=== PATIENT | female | born 1985 | race Caucasian/White ===

== ENCOUNTER 2023-04-18 09:18 | Outpatient (CLI) | payer OTHER, SELFPAY ==
[2023-04-18 17:15] LABS: Alanine Aminotransferase 17 U/L (6-35); Albumin Level 4.2 g/dL (3.5-5.1); Alkaline Phosphatase 55 U/L (38-126); Anion Gap 1 mmol/L (8-16); Aspartate Amino Transferase 26 U/L (14-36); Bilirubin,Total 0.8 mg/dL (0.2-1.3); Blood Urea Nitrogen 18 mg/dL (7-17); Calcium 8.7 mg/dL (8.4-10.2); Carbon Dioxide 31 mmol/L (22-30); Chloride 100 mmol/L (98-107); Cholesterol 135 mg/dL (0-200); Estimated Glomerular Filt Rate > 60; Glucose 94 mg/dL (65-110); HDL Direct 78 mg/dL; Potassium 3.7 mmol/L (3.4-5.0); Sodium 132 mmol/L (137-145); Triglycerides < 30 mg/dL (<150)
[2023-04-18 17:25] LABS: LDL Cholesterol Direct 47 mg/dL
[2023-04-18 17:44] LABS: Thyroid Stimulating Hormone 0.648 uIU/mL (0.465-4.680)
== END 2023-04-18 09:19 | disposition home or self-care (01) ==
LOC: ANHGOSHLAB 09:21
PROVIDERS: PCP Family Medicine; Visit Provider Family Medicine
DX: Z00.00 Encounter for general adult medical examination without abnormal findings (principal)
CPT/HCPCS: 36415; 80053; 80061; 84443

== ENCOUNTER 2023-05-02 09:18 | Outpatient (CLI) | payer OTHER, SELFPAY ==
[2023-05-02 13:04] LABS: Basophils Percent Auto 0.8 % (0.2-1.2); Eosinophils Absolute Auto 0.1 K/mm3 (0-0.3); Eosinophils Percent Auto 1.7 % (0-4.4); Hematocrit 35.9 % (37.0-47.0); Hemoglobin 11.5 g/dL (12.0-15.0); Immature Granulocyte Absolute 0.01 K/mm3 (0.00-0.031); Immature Granulocyte Percent A 0.2 % (0-0.5); Lymphocytes Absolute Auto 1.63 K/mm3 (0.9-3.2); Lymphocytes Percent Auto 30.6 % (18.3-44.2); Mean Corpuscular Hemoglobin 29.5 pg (26-34); Mean Corpuscular Volume 92.1 fl (80-100); Mean Platelet Volume 11.6 fl (7.4-10.4); Monocytes Absolute Auto 0.5 K/mm3 (0.1-0.6); Monocytes Percent Auto 8.4 % (2.6-8.5); Neutrophils Absolute Auto 3.1 K/mm3 (1.3-6.7); Neutrophils Percent Auto 58.3 % (45.5-73.1); Platelet Count Result 194 k/mm3 (150-375); Red Cell Distribution Width 13.1 % (11.5-14.5); White Blood Count 5.3 K/mm3 (4.5-10.0)
[2023-05-02 13:22] LABS: Alanine Aminotransferase 16 U/L (6-35); Alkaline Phosphatase 49 U/L (38-126); Anion Gap 8 mmol/L (8-16); Aspartate Amino Transferase 45 U/L (14-36); Bilirubin,Total 0.7 mg/dL (0.2-1.3); Blood Urea Nitrogen 16 mg/dL (7-17); Calcium 8.9 mg/dL (8.4-10.2); Carbon Dioxide 29 mmol/L (22-30); Chloride 102 mmol/L (98-107); Cholesterol 119 mg/dL (0-200); Estimated Glomerular Filt Rate > 60; Glucose 82 mg/dL (65-110); HDL Direct 67 mg/dL; Potassium 3.9 mmol/L (3.4-5.0); Sodium 139 mmol/L (137-145); Triglycerides 31 mg/dL (<150)
[2023-05-02 13:33] LABS: LDL Cholesterol Direct 43 mg/dL
[2023-05-02 13:50] LABS: Thyroid Stimulating Hormone 0.719 uIU/mL (0.465-4.680)
== END 2023-05-02 09:19 | disposition home or self-care (01) ==
LOC: ANHGOSHLAB 09:21
PROVIDERS: PCP Family Medicine; Visit Provider Family Medicine
DX: Z00.00 Encounter for general adult medical examination without abnormal findings (principal); E87.1 Hypo-osmolality and hyponatremia
CPT/HCPCS: 36415; 80053; 80061; 84443; 85025

== ENCOUNTER 2024-09-07 09:28 | Outpatient (CLI) | payer BC, SELFPAY | END 2024-09-07 09:29 | disposition home or self-care (01) | LOC: ANHGOSHLAB 09:29 | PROVIDERS: PCP Family Medicine; Visit Provider Family Medicine | DX: D64.9 Anemia, unspecified (principal) | CPT/HCPCS: 36415; 82607; 82728 ==

== ENCOUNTER 2024-09-21 09:26 | Outpatient (CLI) | payer BC, SELFPAY ==
--- OUTSIDE RECORDS SUMMARY | 2024-09-21 09:57 | XMS_ITS | Continuity of Care Document ---
Author Organization [facility] Address [address] [place] [phone] Phone Care Team Providers Care Community Outreach Director Name Role Phone Grant Hicks MD Unavailable Unavailable Allergies, Adverse Reactions, Alerts Substance Reaction Status Criticality No Known Allergies Active No Inform ation Problems Condition Type Effective Dates (start - stop) Clini curt Status Comments No Known Problems Procedures Procedure Date Medications - Current Meds Documented Se NEW PATNT OV DTL EXAM X-RAY OF ANKLE 3 VIEWS X-RAY OF KNEE 1 OR 2 VIEWS Advance Directives Directive Yes / No Effective Date File Name No Information Encounters Encounter Description Practice Location Reason(s) For Visit Diagnoses Date Provider Providers Copied on Encounter NEW PATNT OV DTL EXAM [facility], [address] [place] [address], [id number], tel:[phone] [facility] Left ankle injury (chief complaint) Sprain of left ankle, unspecified ligament, initial encounterAcute pain of left knee Kurt Burns. [address] [place], [place], [id number] . tel:[phone] Referring Provider: Grant Street, [address] [place], [address] . tel:[phone] Family History Family Member Type Diagnosis Age At Onset No Information Payers Payer name Insurance type Covered constitution party ID Authoriza tion(s) A[employer] Open Choice PPO CI [id number] Social History Type Description Quantity Date Captured Comments Alcohol Use Details Caffeine Use Details Unknown Tobacco Use Status Never smoked tobacco 2019 Smoking Status Never smoker Non-Smoking Tobacco Use Details : No Details Available : No Details Available Sex Female Vital Signs Date / Time: Height Weight BMI Pulse Rate Blood Pressure Temperature Respiratory Rate Body Surface Area Head Circumference Head Circ. Percentile Wt./Scot. Percentile BMI percentile Pulse Ox Inhaled Ox 10:36 AM 67.00 in 65.771 kg (145.00 lbs) 22.7 1 kg/m eter (2) Chief Complaint And Reason For Visit From encounter dated '05/09/2020 10:20'. Left ankle injury (chief complaint) Reason For Referral Reason For Referral No Information Plan Of Treatment Date Type Action Status Future Order: Radiology Order MR I - Ankle Left W/O Contrast (AKL), Ordered on: Ordered History Of Present Illness Encounter Date Complaint History Of Prese nt Illness Left ankle injury Functional Status Date Functional Assessmen t No Information Instructions Date Instruction Additional Infor mation - Medication refills must be requested before 4pm Friday through Friday Related to Acute pain of left knee - Patient education available at [email or web address] on the Education tab Related to Acute pain of left knee Assessments Type Assessment Date assessment Sprain of left ankle, unspecifie d ligament, initial encounter assessment Acute pain of left knee 020 Patient Care Teams Name Effective Dates (start - stop) Status Members No Information
--- OUTSIDE RECORDS SUMMARY | 2024-09-21 09:57 | XMS_ITS | Continuity of Care Document ---
Author Organization [facility] Address [address] [place] [address] Phone Care Team Providers Care Booth Supervisor Name Role Phone No Information Unavailable Unavailable Advance Directives Directive Yes / No Effective Date File Name No Information Encounters Encounter Description Practice Location Reason(s) For Visit Diagnoses Date Provider Providers [facility]ied on [facility], [address] [place] [address], [address], [place] tel:[phone] No Location No Information No Information Family History Family Member Type Diagnosis Age At Onset No Information Payers Payer name Insurance type Covered republican ID Authoriza tion(s) No Information Social History Type Description Quantity Date Captured Comments Sex Female Smoking Status No Information Chief Complaint And Reason For Visit No Information Reason For Referral Reason For Referral No Information History Of Present Illness Encounter Date Complaint History Of Prese nt Illness No Information Functional Status Date Functional Assessmen t No Information Instructions Date Instruction Additional Infor mation No Information Assessments Type Assessment Date No Information Patient Care Teams Name Effective Dates (start - stop) Status Members No Information
--- OUTSIDE RECORDS SUMMARY | 2024-09-21 09:57 | XMS_ITS | Clinical Summary ---
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 Gender Identity Not on file Sexual Orientation Not on file Plan of Treatment Health Maintenance Due Date Last Done Comments Hepatitis C Virus (HCV) Screening 1987 TdaP Immunization 1987 Hepatitis B Immunization (1 of 3 - 19+ 3-dose series) 2006 Pap Smear 2008 Cervical Cancer Screening (CCS) 2017 HPV/Cotest 2017 Influenza Immunization (#1) 2024 SARS-COV-2 Immunization ( season) 2024 Respiratory Syncytial Virus (RSV) Immunization (Adult) (1 - 1-dose 75+ series) 2062 Meningococcal Immunization (ACWY) Aged Out No longer eligible based on patient's age to complete this topic Pneumococcal Immunization Combined Aged Out No longer eligible based on patient's age to complete this topic Rotavirus Immunization Aged Out No lo nger eligible based on patient's age to complete this topic Insurance [employer] on file
--- OUTSIDE RECORDS SUMMARY | 2024-09-21 09:57 | XMS_ITS | Referral Summary ---
Author Organization [facility] Address [address] [place] [address] Care Team Providers Care Bonsai Culturist Name Role Phone Unavailable Primary Care Provider Unavailabl e Source Comments [facility],non-owned Affiliates and Associated Physician Practices is amultiple site organization consisting of ambulatory clinics and hospital sitesin [place], [place], [place] and [place]. This disclosure is being madepursuant to the Care Everywhere program and may not contain all information available regarding this patient. Last updated 18.[facility] Social History Tobacco Use Types Packs/Day Years Used Date Smoking Tobacco: Never Assessed Sex and Gender Information Value Date Recorded Sex Assigned at Not on file Gender Identity Not on file Sexual Orientation Not on file Plan of Treatment Not on file
--- OUTSIDE RECORDS SUMMARY | 2024-09-21 09:57 | XMS_ITS | Patient Health Summary ---
Author Organization [facility] Address [address] [place] [address] Care Team Providers Care Ultrasound Technol Name Role Phone Unavailable Primary Care Provider Unavailanant e Note from [facility],non-owned Affiliates and Associated Physician Practices is amultiple site organization consisting of ambulatory clinics and hospital sitesin [place], [place], [place] and [place]. This disclosure is being madepursuant to the Care Everywhere program and may not contain all information available regarding this patient. Last updated 18.[facility] Social History Tobacco Use Types Packs/Day Years Used Date Smoking Tobacco: Never Assessed Sex and Gender Information Value Date Recorded Sex Assigned at Not on file Gender Identity Not on file Sexual Orientation Not on file Procedures * DERMATOPATHOLOGY(Performed 10/05/2021) Results * DERMATOPATHOLOGY (10/05/2021 12:00 AM SHEET PILE DRIVER OPERATOR) Case Report Dermatopathology Report ? Case: [id number] ? Authorizing Provider: ??Valdemar Mtz MD ?Collected: ? 10/05/2021 12:00 AM ? Ordering Location: ? [facility] ?Received: ?10/08/2021 04:24 PM ? Pathologist: ? Damaris Alva, ? MD ? Specimen: ?Skin, left buttock ? 2 2:[address] [facility] DERMATOPATHOLOGY LABORATORY Final Diagnosis Specimen A. SKIN, left buttock: LENTIGINOUS MELANOCYTIC NEVUS, COMPOUND TYPE, IRRITATED (COMPOUND MELANOCYTIC NEVUS WITH ARCHITECTURAL DISORDER) (D22.5) POST-INFLAMMATORY PIGMENT ALTERATION (L81.9) 2 2:[address] [facility] DERMATOPATHOLOGY LABORATORY Clinical History Nevus vs MM. Path # [id number]. 2 2:[address] [facility] DERMATOPATHOLOGY LABORATORY Gross Description Specimen A: Received is one formalin filled container labeled with the patient's name and designated left buttock. The specimen consists of a shave biopsy measuring [id number]. Jar 0. 2 2:[address] [facility] DERMATOPATHOLOGY LABORATORY Microscopic Description Specimen A. SKIN, left buttock: This is a compound nevus. There is melanin pigment in the stratum corneum. There is architectural disorder characterized by a lentiginous proliferation of melanocytes between irregular nests of cells along the dermal-epidermal junction, highlighted by MART-1/Melan-A immunohistochemical staining. There is underlying fibroplasia of the papillary dermis. The intradermal component is bland appearance and matures with depth. Original and deeper sections were reviewed. (Compound Abraham's Nevus or Compound Dysplastic Nevus) There is abundant melanin within melanophages around the superficial vascular plexus. 2 2:[address] [facility] DERMATOPATHOLOGY LABORATORY Disclaimer An external and internal positive and negative controls are appropriate for the histochemical, immunohistochemical and immunofluorescence stain(s) in this case (if any), except where stated explicitly. The performance characteristics of the stain(s) cited in this report were developed and its performance characteristic determined by the Dermatopathology Laboratory at [facility], directed by Dr. Donald Gonzalez. These tests need not be, and therefore are not, approved by the [place] Food and Drug Administration. The tests are used for clinical purposes. Billing Codes Specimen Charges Stain Charges 74503 1 94671 1 2 2:[address] [facility] DERMATOPATHOLOGY LABORATORY Embedded Images 2 2:47 PM SHEET PILE DRIVER OPERATOR DERMATOPATHOLOGY LABORATORY Pathology/Cytolog y TISSUE SPECIMEN FROM SKIN / Unknown 10/05/2021 10/08/2021 4:24 PM SHEET PILE DRIVER OPERATOR Valdemar Mtz MD LAB - PATHOLOGY/CYTO LOGY ORDERABLES DERMATOPATHOLOGY LABORATORY [facility] - Department of Dermatology [facility] [address] [place] [address], [address] [phone]
--- OUTSIDE RECORDS SUMMARY | 2024-09-21 09:57 | XMS_ITS | Encounter Summary ---
Author Organization [facility] Address [address] [place] [place] [address] Care Team Providers Care Scrub Woman Name Role Phone Unavailable Primary Care Provider Iwonaanant e Encounter Details Date Type Department Care Team (Late st Contact Info) Description 10/08/2021 Lab Requisition [facility] [address] [place] [id number] Valdemar Mtz MD [address] [place] [address] Social History Tobacco Use Types Packs/Day Years Used Date Smoking Tobacco: Never Assessed Sex and Gender Information Value Date Recorded Sex Assigned at Not on file Gender Identity Not on file Sexual Orientation Not on file documented as of this encounter Plan of Treatment Not on file documented as of this encounter Procedures Procedure Name Priority Date/Time Associated Diagnosis Comments DERMATOPATHOLOGY Routine 10/05/2021 12:0 0 AM MANAGER STONE documented in this encounter Results * DERMATOPATHOLOGY (10/05/2021 12:00 AM MANAGER STONE) Case Report Dermatopathology Report ? Case: [id number] ? Authorizing Provider: ??Valdemar Mtz MD ?Collected: ? 10/05/2021 12:00 AM ? Ordering Location: ? [facility] ?Received: ?10/08/2021 04:24 PM ? Pathologist: ? Damaris Alva, ? MD ? Specimen: ?Skin, left buttock ? 2 2:47 PM [facility] DERMATOPATHOLOGY LABORATORY Final Diagnosis Specimen A. SKIN, left buttock: LENTIGINOUS MELANOCYTIC NEVUS, COMPOUND TYPE, IRRITATED (COMPOUND MELANOCYTIC NEVUS WITH ARCHITECTURAL DISORDER) (D22.5) POST-INFLAMMATORY PIGMENT ALTERATION (L81.9) 2 2:47 PM [facility] DERMATOPATHOLOGY LABORATORY Clinical History Nevus vs MM. Path # [id number]. 2 2:47 PM [facility] DERMATOPATHOLOGY LABORATORY Gross Description Specimen A: Received is one formalin filled container labeled with the patient's name and designated left buttock. The specimen consists of a shave biopsy measuring [id number]. Jar 0. 2 2:47 PM [facility] DERMATOPATHOLOGY LABORATORY Microscopic Description Specimen A. SKIN, [...] the superficial vascular plexus. 2 2:47 PM [facility] DERMATOPATHOLOGY LABORATORY Disclaimer An external and internal positive and negative controls are appropriate for the histochemical, immunohistochemical and immunofluorescence stain(s) in this case (if any), except where stated explicitly. The performance characteristics of the stain(s) cited in this report were developed and its performance characteristic determined by the Dermatopathology Laboratory at [facility], directed by Dr. Donald Gonzalez. These tests need not be, and therefore are not, approved by the [place] Food and Drug Administration. The tests are used for clinical purposes. Billing Codes Specimen Charges Stain Charges 41081 1 19869 1 2 2:47 PM MANAGER STONE DERMATOPATHOLOGY LABORATORY Embedded Images 2 2:47 PM MANAGER STONE DERMATOPATHOLOGY LABORATORY Pathology/Cytolog y TISSUE SPECIMEN FROM SKIN / Unknown 10/05/2021 10/08/2021 4:24 PM MANAGER STONE Valdemar Mtz MD LAB - PATHOLOGY/CYTO LOGY ORDERABLES DERMATOPATHOLOGY LABORATORY [facility] - Department of Dermatology [address], [address] Floor [address] [phone] documented in this encounter Visit Diagnoses Not on filedocumented in this encounter
--- OUTSIDE RECORDS SUMMARY | 2024-09-21 09:57 | XMS_ITS | Clinical Summary ---
Author Organization [facility] Address [address] [place] [phone] Phone Care Team Providers Care Day Care Center Director Name Role Phone Unavailable Primary Care Provider Unavailabl e Allergies No known active allergies Medications cholecalciferol, vitamin D3, (VITAMIN D3 ORAL) Take by mouth. Active L. acidophilus/L. rhamnosus (PROBIOTIC ORAL) Take by mouth. Active PNV no.133/ferrous fum/folic ( ORAL) Take by mouth. Active PNV 22/iron,gluc/fol ic/dss/dha (PRENAISSANCE DHA ORAL) Take by mouth. Active IRON ORAL Take by mouth. 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 Resolved Problems Problem Noted Date Diagnosed Date Resolved Date Encounter for supervision of other normal 07/16/2017 04/18/2022 Missed menses 04/04/2017 08/13/2021 , incidental 07/21/20152015 Immunizations Immunization Administration Dates Next Due (M-M-R II/PRIORIX)(12 MO UP) MEASLES, MUMPS AND RUBELLA VIRUS VACCINE, 0.5 ML IM/SUBCUT 11/17/2015 (PFIZER)(12 YR UP) COVID-19 VACCINE - EMERGENCY USE AUTHORIZATION, MRNA, [id number](PF) 30 MCG/0.3 ML IM SUSP 11/13/2020,10/23/2020 Family History Medical History Relation Name Comments Healthy Daughter 1 Cranial Abnormalities Daughter 2 Healthy Daughter 2 Diabetes Father High Cholesterol Father Heart Disease Maternal Grandfather Healthy Maternal Grandmother Adoptive mother Hypertension Mother No Known Problems Paternal Grandfather Healthy Paternal Grandmother Valvular Heart Disease Sister 1 No Known Problems Sister 2 Breast Cancer Neg Hx Colon Cancer Neg Hx Ovarian Cancer Neg Hx Relation Name Status Comments Daughter 1 Alive Daughter 2 Alive Father Alive Maternal Grandfather Maternal Grandmother Adoptive mother Alive Mother Alive Paternal Grandfather Paternal Grandmother Alive Sister 1 Alive Sister 2 Alive Social History Tobacco Use Types Packs/Day Years Used Date Smoking Tobacco: Never Smokeless Tobacco: Never Alcohol Use Standard Drinks/Week Comments No 0 (1 standard drink = 0.6 oz pur e alcohol) Social Connections Answer Date Recorded In a typical week, how many times do you talk on the telephone with family, friends, or neighbors? Three times a week 08/13/20 How often do you get togethe r with friends or relatives? Three times a week 08/13/2021 Attends [employer] Services Not on file 08/13 Do you belong to any clubs o r organizations such as scientology groups, unions, fraternal or athletic groups, or school groups? No 08/13/2021 Attends Club or Organization Meetings Not on shon e 08/13/2021 Are you , , di vorced, , never , or living with a partner? 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 Gender Identity Not on file Sexual Orientation Not on file Last Filed Vital Signs Vital Sign Reading Time Taken Comments Blood Pressure 113/68 04/18/2022 10:59 AM CDT Pulse 64 02/14/2022 7:01 AM CDT Temperature 36.7 ??C (98 ??F) 02/14/2022 10:55 AM CDT Respiratory Rate 18 02/14/2022 7:01 AM CDT Oxygen Saturation 100% 02/13/2022 12:29 PM CDT Inhaled Oxygen Concentration - - Weight 64.9 kg (143 lb) 04/18/2022 10:59 AM CDT Height 162.6 cm (5' 4 ) 04/18/2022 10:59 AM CDT Body Mass Index 24.55 04/18/2022 10:59 AM CDT Plan of Treatment Health Maintenance Due Date Last Done Comments DTAP/TDAP/TD VACCINES (1 - Tdap) 2006 HEPATITIS B VACCINES (1 of 3 - 19+ 3-dose series) 2006 INFLUENZA VACCINE (#1) 2024 COVID-19 Vaccine (2023- season) 2024 11/13/2020, 10/23/2020 CERVICAL CANCER SCREENING 05/25/20242020, 02/18/2019, 05/12/2017, Additional history exists HPV VACCINES Aged Out No longer eligi ble based on patient's age to complete this topic PNEUMOCOCCAL VACCINE 0-64 YEARS Aged Out No longer eligible based on patient's age to complete this topic Procedures Procedure Name Priority Date/Time Associated Diagnosis Comments CERV/VAG CYTO SCREEN PAP W/HPV Routine 05/25/2021 10:57 AM CDT Well woman exam with routine gynecological exam Cervical cancer screening from Last 3 Months or Most Recently Relevant to Health Maintenance Results * CERV/VAG CYTO SCREEN PAP W/HPV (05/25/2021 10:57 AM CDT) CLINICAL INFORMATION [facility] Comment:SCREENING LAST MENSTRUAL PERIOD [facility] Comment:[id number] PREV PAP: [facility] Comment:INFORMATION NOT PROV IDED PREV BX: [facility] Comment:INFORMATION NOT PROV IDED SOURCE [facility] Comment:Endocervix ADEQUACY: [facility] Comment: Satisfactory for evaluation. Endocervical/transformation zone component present. PAP INTERP [facility] Comment:Negative for intraep ithelial lesion or malignancy. COMMENT [facility] Comment: This Pap test has been evaluated with computer assisted technology. PATENT LITIGATION ASSOCIATE: [facility] Comment: LMT, CT(ASCP) CT screening location: [place] [address] [place] [address] REVIEW PATENT LITIGATION ASSOCIATE: [facility] Comment: KMY, CT(ASCP) CT screening location: [place] [address] [address]HA Castro [facility] EXPLANATORY NOTE [facility] Comment: EXPLANATORY NOTE: The Pap is a screening test for cervical cancer. It is not a diagnostic test and is subject to false negative and false positive results. It is most reliable when a satisfactory sample, regularly obtained, is submitted with relevant clinical findings and history, and when the Pap result is evaluated along with historic and current clinical information. HPV E6/E7 Not Detected Not Detected [facility] Comment: Methodology: Developmental Electronics Assembler-Mediated Amplification This assay detects E6/E7 viral messenger RNA (mRNA) from 14 high-risk HPV types (16,18,31,33,35,39,45,51,52,56,58,59,66,68). The analytical performance characteristics of this assay have been determined by [facility]. The modifications have not been cleared or approved by the FDA. This assay has been validated pursuant to the CLIA regulations and is used for clinical purposes. For additional information, please refer to http://education.Amarin/faq/TIS183t9 (This link if provided for information/ educational purposes only.) Test Performed at: [facility] [id number] [place] ??[id number] Julien Rondon D.O., MPH SL Genital SWAB OF ENDOCERVIX / Unknown 05/25/2021 10:57 AM CDT 05/25/2021 8:48 PM CDT Leslie S[facility]LETARYM PATHOLOGY/CYTOLOGY O RDERABLES Final Result [address] [address] from Last 3 Months or Most Recently Relevant to Health Maintenance Insurance [facility] BLUE ACCESS/TRUE BLUE PPO Advance Directives For more information, please contact: [phone] * Full Code (Latest Code Status on File) Date Activated Date Inactivated Comments 11/19/2017 8:22 PM 11/19/2017 8:38 PM * Full Code Date Activated Date Inactivated Comments 11/19/2017 6:50 PM 11/19/2017 8:22 PM * Full Code Date Activated Date Inactivated Comments 11/16/2015 11:07 PM 11/17/2015 8:37 PM * Full Code Date Activated Date Inactivated Comments 11/16/2015 5:09 PM 11/16/2015 11:07 PM
--- OUTSIDE RECORDS SUMMARY | 2024-09-21 09:57 | XMS_ITS | Clinical Summary ---
Author Organization [facility] Address [address] [place] [address] Care Team Providers Care Associate Professor Of Theology Name Role Phone Unavailable Primary Care Provider Unavailabl e Source Comments [facility],non-owned Affiliates and Associated Physician Practices is amultiple site organization consisting of ambulatory clinics and hospital sitesin [place], [place], [place] and [place]. This disclosure is being madepursuant to the Care Everywhere program and may not contain all information available regarding this patient. Last updated 18.[facility] [employer] Social History Tobacco Use Types Packs/Day Years Used Date Smoking Tobacco: Never Assessed Sex and Gender Information Value Date Recorded Sex Assigned at Not on file Gender Identity Not on file Sexual Orientation Not on file Plan of Treatment Health Maintenance Due Date Last Done Comments PAP SMEAR 1987 HIV SCREENING 2002 HEPATITIS C SCREENING 08/19/2005 DTAP/TDAP/TD VACCINES (1 - Tdap) 2006 HEPATITIS B VACCINE (1 of 3 - 19+ 3-dose series) 2006 COVID-19 VACCINE ( - 2023-2 5 season) 2024 INFLUENZA VACCINE (#1) 2024 DEPRESSION SCREENING 08/25/2024 ZOSTER VACCINE (1 of 2) 2037 HIB VACCINE Aged Out No longer eligi ble based on patient's age to complete this topic HPV VACCINE Aged Out No longer eligi ble based on patient's age to complete this topic MENINGOCOCCAL (Group B) VACCINE Aged Out No longer eligible based on patient's age to complete this topic MENINGOCOCCAL VACCINE Aged Out No cresencio moriah eligible based on patient's age to complete this topic PNEUMOCOCCAL VACCINE Aged Out No long er eligible based on patient's age to complete this topic
[2024-09-21 13:34] LABS: Basophils Percent Auto 0.7 % (0.2-1.2); Eosinophils Absolute Auto 0.1 K/mm3 (0-0.3); Eosinophils Percent Auto 1.6 % (0-4.4); Hematocrit 37.4 % (37.0-47.0); Hemoglobin 11.6 g/dL (12.0-15.0); Immature Granulocyte Absolute 0.01 K/mm3 (0.00-0.031); Immature Granulocyte Percent A 0.2 % (0-0.5); Mean Corpuscular Hemoglobin 27.8 pg (26-34); Mean Corpuscular Volume 89.5 fl (80-100); Mean Platelet Volume 11.3 fl (7.4-10.4); Monocytes Absolute Auto 0.3 K/mm3 (0.1-0.6); Monocytes Percent Auto 7.6 % (2.6-8.5); Neutrophils Absolute Auto 2.6 K/mm3 (1.3-6.7); Neutrophils Percent Auto 59.9 % (45.5-73.1); Platelet Count Result 175 k/mm3 (150-375); Red Blood Count 4.18 M/mm3 (4.2-5.4); Red Cell Distribution Width 12.9 % (11.5-14.5); White Blood Count 4.3 K/mm3 (4.5-10.0)
[2024-09-21 14:35] LABS: Alanine Aminotransferase 15 U/L (6-35); Albumin Level 4.3 g/dL (3.5-5.1); Alkaline Phosphatase 51 U/L (38-126); Anion Gap 7 mmol/L (4-12); Aspartate Amino Transferase 25 U/L (14-36); Bilirubin,Total 0.8 mg/dL (0.2-1.3); Blood Urea Nitrogen 17 mg/dL (7-17); Calcium 8.8 mg/dL (8.4-10.2); Carbon Dioxide 31 mmol/L (22-30); Chloride 99 mmol/L (98-107); Cholesterol 120 mg/dL (0-200); Estimated Glomerular Filt Rate > 60; Glucose 84 mg/dL (65-110); HDL Direct 61 mg/dL; Potassium 4.1 mmol/L (3.4-5.0); Sodium 137 mmol/L (137-145); Triglycerides 60 mg/dL (<150)
[2024-09-21 14:46] LABS: LDL Cholesterol Direct 46 mg/dL
[2024-09-21 15:05] LABS: Thyroid Stimulating Hormone 0.956 uIU/mL (0.465-4.680)
[2024-09-21 17:09] LABS: Ferritin 9.32 ng/mL (6.24-137)
[2024-09-25 09:33] LABS: Immunoglobulin A 256 mg/dL (47-310); TTG IGA AB <1.0 U/mL
== END 2024-09-21 09:27 | disposition home or self-care (01) ==
LOC: ANHGOSHLAB 09:27
PROVIDERS: PCP Family Medicine; Visit Provider Family Medicine
DX: Z00.00 Encounter for general adult medical examination without abnormal findings (principal); E61.1 Iron deficiency
CPT/HCPCS: 36415; 80053; 80061; 82728; 82784; 84443; 85025; 86364

== ENCOUNTER 2025-01-11 09:34 | Outpatient (CLI) | payer BC, SELFPAY ==
--- OUTSIDE RECORDS SUMMARY | 2025-01-11 09:45 | XMS_ITS | Continuity of Care Document ---
Author Organization [facility] Address [address] [place] [address] Phone Care Team Providers Care Right Of Way Appraiser Name Role Phone No Information Unavailable Unavailable Advance Directives Directive Yes / No Effective Date File Name No Information Encounters Encounter Description Practice Location Reason(s) For Visit Diagnoses Date Provider Providers Copied on Encounter [facility], [address] [place] [address], [address], [place] tel:[phone] No Location No Information [id number] No Information Family History Family Member Type Diagnosis Age At Onset No Information Payers Payer name Insurance type Covered alliance party ID Authoriza tion(s) No Information Social History [...]
--- OUTSIDE RECORDS SUMMARY | 2025-01-11 09:45 | XMS_ITS | Clinical Summary ---
Author Organization [facility] Address [address] [place] [address] Care Team Providers Care Margin Clerk Name Role Phone Unavailable Primary Care Provider Unavailabl e Source Comments [facility],non-owned Affiliates and Associated Physician Practices is amultiple site organization consisting of ambulatory clinics and hospital sitesin [place], [place], [place] and [place]. This disclosure is being madepursuant to the Care Everywhere program and may not contain all information available regarding this patient. Last updated 18.[facility] [employer] Social History Tobacco Use Types Packs/Day Years Used Date Smoking Tobacco: Never Assessed Comments Unknown Sex and Gender Information Value Date Recorded Sex Assigned at Not on file Legal Sex Female 4:51 PM CDT Gender Identity Not on file Sexual Orientation Not on file Plan of Treatment Health Maintenance Due Date Last Done Comments HIV SCREENING 2002 HEPATITIS C SCREENING 08/19/2005 DTAP/TDAP/TD VACCINES (1 - Tdap) 2006 HEPATITIS B VACCINE (1 of 3 - 19+ 3-dose series) 2006 COVID-19 VACCINE ( - 2023-2 5 season) 2024 DEPRESSION SCREENING 08/25/2024 INFLUENZA VACCINE (Season Ended) 2025 ZOSTER VACCINE (1 of 2) 2037 HIB VACCINE Aged Out No longer eligi ble based on patient's age to complete this topic HPV VACCINE Aged Out No longer eligi ble based on patient's age to complete this topic MENINGOCOCCAL (Group B) VACC INE SHARED DECISION-MAKING Aged Out No longer eligibl e based on patient's age to complete this topic MENINGOCOCCAL GROUPS A/C/Y/W VACCINE Aged Out No longer eligible b ased on patient's age to complete this topic PNEUMOCOCCAL VACCINE Aged Out No long er eligible based on patient's age to complete this topic Insurance [facility] Address: [facility] [id number] [place] [id number]
--- OUTSIDE RECORDS SUMMARY | 2025-01-11 09:45 | XMS_ITS | Clinical Summary ---
Author Organization [facility] Address [address] [place] [id number] Phone Care Team Providers Care Estate And Trust Tax Principal Name Role Phone Unavailable Primary Care Provider [...] COVID-19 VACCINE - EMERGENCY USE AUTHORIZATION, MRNA, [id number](PF) 30 MCG/0.3 ML IM SUSP 11/13/2020,10/23/2020 Family [...] or neighbors? Three times a week 08/13/20 21 How often do you get togethe r with friends or relatives? Three times a week 08/13/2021 Attends [employer] Not on file 08/13 Do you belong to any clubs o r organizations such as orthodox groups, unions, fraternal or athletic groups, or school groups? No 08/13/2021 Attends Club or Organization Meetings Not on shon e 08/13/2021 Are you , , di vorced, , never , or living with a partner? 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 Gender Identity Not on file Sexual Orientation Not on file Last Filed Vital Signs Vital Sign Reading Time Taken Comments Blood Pressure 113/68 04/18/2022 10:59 AM CDT Pulse 64 02/14/2022 7:01 AM CDT Temperature 36.7 C (98 F) 02/14/2022 10:55 AM CDT Respiratory Rate 18 [...] COVID-19 Vaccine (2023- season) 2024 11/13/2020, 10/23/2020 PAP SMEAR 05/25/2024 05/25/2021, 06/02/2019, 05/12/2017, Additional history exists CERVICAL CANCER SCREENING 05/25/2026 HPV/Cotest (21-29) 05/25/2026 05/25/2021, 0 02/18/2019, 05/12/2017, Additional history exists HPV/Cotest (30-65) 05/25/2026 05/25/2021, 0 02/18/2019, 05/12/2017, Additional history exists HPV VACCINES [...] has been evaluated with computer assisted technology. FLOOR COVERING CONTRACTOR: [facility] Comment: LMT, CT(ASCP) CT screening location: [place] [address] Administration RADHA Castro [facility] REVIEW FLOOR COVERING CONTRACTOR: [facility] Comment: DEVENDRA CT(ASCP) CT screening location: [place] [address] Administration RADHA Castro [id number] [address] [facility] Comment: EXPLANATORY NOTE: The Pap [...] information. HPV E6/E7 Not Detected Not Detected [facility] Comment: Methodology: Overcoiler-Mediated Amplification This assay detects E6/E7 viral messenger RNA (mRNA) from 14 high-risk HPV types (16,18,31,33,35,39,45,51,52,56,58,59,66,68). The analytical performance characteristics of this assay have been determined by [employer]. The modifications have not been cleared or approved by the FDA. This assay has been validated pursuant to the CLIA regulations and is used for clinical purposes. For additional information, please refer to http://education.Moment/faq/YZA780y2 (This link if provided for information/ educational purposes only.) Test [facility]formed at: [facility] [address] [place] [address] Julien Rondon D.O., MPH SL Genital SWAB OF ENDOCERVIX / Unknown 05/25/2021 10:57 AM CDT 05/25/2021 8:48 PM CDT Leslie SINGLETARYM PATHOLOGY/CYTOLOGY O RDERABLES Final Result [facility] [address] [place] [address] from Last 3 Months or Most Recently Relevant to Health Maintenance Insurance [facility] BLUE ACCESS/TRUE BLUE PPO Advance Directives For more information, please contact: [phone] * Full Code (Latest Code Status on [...]
--- OUTSIDE RECORDS SUMMARY | 2025-01-11 09:45 | XMS_ITS | Encounter Summary ---
Author Organization [facility] Address [address] [place] [address] Care Team Providers Care Gift Packer Name Role Phone Unavailable Primary Care Provider Nigel e Encounter Details Date Type Department Care Team (Late st Contact Info) Description 10/08/[address] [facility] DermPath Lab [address] [place] [address] Valdemar Mtz MD [address] [place] [address] Social History Tobacco Use Types [...] Comments DERMATOPATHOLOGY Routine 10/05/2021 12:0 0 AM MOTH EXTERMINATOR documented in this encounter Results * DERMATOPATHOLOGY (10/05/2021 12:00 AM MOTH EXTERMINATOR) Case Report Dermatopathology Report Case: [id number] Authorizing Provider: Valdemar Mtz MD Collected: 10/05/2021 12:00 AM Ordering Location: [facility] Derm[facility] Lab Received: 10/08/2021 04:24 PM Pathologist: Damaris Alva MD Specimen: Skin, left buttock 2 2:47 PM MOTH EXTERMINATOR DERMATOPATHOLOGY LABORATORY Final Diagnosis Specimen A. SKIN, left buttock: LENTIGINOUS MELANOCYTIC NEVUS, COMPOUND TYPE, IRRITATED (COMPOUND MELANOCYTIC NEVUS WITH ARCHITECTURAL DISORDER) (D22.5) POST-INFLAMMATORY PIGMENT ALTERATION (L81.9) 2 2:47 PM [facility] DERMATOPATHOLOGY LABORATORY at 1446 MOTH EXTERMINATOR Clinical History Nevus vs MM. Path # [id number]. 2 2:47 PM [facility] DERMATOPATHOLOGY LABORATORY Gross Description Specimen A: Received is one formalin filled container labeled with the patient's name and designated left buttock. The specimen consists of a shave biopsy measuring [id number]. Jar 0. 2 2:47 PM [facility] DERMATOPATHOLOGY LABORATORY Microscopic Description Specimen A. SKIN, [...] the superficial vascular plexus. 2 2:47 PM [facility] DERMATOPATHOLOGY LABORATORY Disclaimer An external and internal positive and negative controls are appropriate for the histochemical, immunohistochemical and immunofluorescence stain(s) in this case (if any), except where stated explicitly. The performance characteristics of the stain(s) cited in this report were developed and its performance characteristic determined by the Dermatopathology Laboratory at [facility], directed by Dr. Donald Gonzalez. These tests need not be, and therefore are not, approved by the [place] Food and Drug Administration. The tests are used for clinical purposes. Billing Codes Specimen Charges Stain Charges 14312 1 84127 1 2 2:47 PM MOTH EXTERMINATOR DERMATOPATHOLOGY LABORATORY Embedded Images 2 2:47 PM [facility] DERMATOPATHOLOGY LABORATORY Pathology/Cytolog y TISSUE SPECIMEN FROM SKIN / Unknown 10/05/2021 10/08/2021 4:24 PM MOTH EXTERMINATOR us Valdemar Mtz MD LAB - PATHOLOGY/CYTOLOGY ORDER PAT Final Result DERMATOPATHOLOGY LABORATORY [facility] - Department of Dermatology [facility] [place] [address] [place], [address] [phone] documented in this encounter Visit Diagnoses Not on filedocumented in this encounter
--- OUTSIDE RECORDS SUMMARY | 2025-01-11 09:45 | XMS_ITS | Clinical Summary ---
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
--- OUTSIDE RECORDS SUMMARY | 2025-01-11 09:45 | XMS_ITS | Continuity of Care Document ---
Author Organization [facility] Address [address] [place] [phone] Phone Care Team Providers Care Globe Tester Name Role Phone Grant Hicks MD Unavailable [...] on Encounter NEW PATNT OV DTL EXAM [facility], [address] [place] [address], [id number], tel:[phone] [facility] Left ankle injury (chief complaint) Sprain of left ankle, unspecified ligament, initial encounterAcute pain of left knee Kurt Burns. [address] [place], [place], [id number] . tel:[phone] Referring Provider: Grant Street, [address] [place], [address] . tel:[phone] Family History Family Member Type Diagnosis Age At Onset No Information Payers Payer name Insurance type Covered libertarian ID Authoriza tion(s) [employer] Open Choice PPO CI [id number] Social History Type Description Quantity Date Captured [...] left knee - Patient education available at [email or web address] Workflow Management on the Education tab Related to Acute pain of left knee Assessments Type Assessment Date assessment Sprain of left ankle, unspecifie d ligament, initial encounter assessment Acute pain of left knee 020 Patient Care Teams Name Effective Dates (start - stop) Status Members No Information
[2025-01-11 13:31] LABS: Basophils Absolute Auto 0.1 K/mm3 (0.0-0.1); Basophils Percent Auto 0.9 % (0.2-1.2); Eosinophils Absolute Auto 0.1 K/mm3 (0-0.3); Eosinophils Percent Auto 1.5 % (0-4.4); Hematocrit 36.8 % (37.0-47.0); Hemoglobin 11.4 g/dL (12.0-15.0); Immature Granulocyte Absolute 0.01 K/mm3 (0.00-0.031); Immature Granulocyte Percent A 0.2 % (0-0.5); Lymphocytes Absolute Auto 1.48 K/mm3 (0.9-3.2); Lymphocytes Percent Auto 27.8 % (18.3-44.2); Mean Corpuscular Hemoglobin 28.1 pg (26-34); Mean Corpuscular Volume 90.9 fl (80-100); Mean Platelet Volume 11.6 fl (7.4-10.4); Monocytes Absolute Auto 0.5 K/mm3 (0.1-0.6); Monocytes Percent Auto 8.8 % (2.6-8.5); Neutrophils Absolute Auto 3.2 K/mm3 (1.3-6.7); Neutrophils Percent Auto 60.8 % (45.5-73.1); Platelet Count Result 206 k/mm3 (150-375); Red Blood Count 4.05 M/mm3 (4.2-5.4); Red Cell Distribution Width 13.7 % (11.5-14.5); White Blood Count 5.3 K/mm3 (4.5-10.0)
[2025-01-11 14:22] LABS: Ferritin 6.77 ng/mL (6.24-137)
== END 2025-01-11 09:35 | disposition home or self-care (01) ==
LOC: ANHGOSHLAB 09:35
PROVIDERS: PCP Family Medicine; Visit Provider Family Medicine
DX: E61.1 Iron deficiency (principal)
CPT/HCPCS: 36415; 82728; 85025